=== PATIENT | male | born 1980 | race Caucasian/White ===

== ENCOUNTER 2017-07-06 23:13 | Emergency (ER) | payer BC ==
[2017-07-06 23:13] VITALS: BMI 28.1
[2017-07-06 23:19] VITALS: BP 134/83; PULSE 96; RESP 18; TEMP 98.7; O2SAT 98
--- NOTE | 2017-07-07 00:19 | C.PDOC ---
History Of Present Illness 37 year old male presents to the ER with a complaint of right ankle pain after he missed 2 steps on the stairs and twisted his right ankle [employer]. Patient reports he is unable to bear weight on his right ankle; denies weakness or numbness. Time Seen by Provider: 07/06/17 23:23 Chief Complaint (Nursing): Lower Extremity Problem/Injury History Per: Patient History/Exam Limitations: no limitations Onset/Duration Of Symptoms: Hrs Current Symptoms Are (Timing): Still Present Recent travel outside of the [place]: No - Ankle/Foot Description Of Injury: Twisted Currently Unable To: Bear Weight Past Medical History Reviewed: Historical Data, Nursing Documentation, Vital Signs Vital Signs: Last Vital Signs Temp 98.7 F 07/06/17 23:18 Pulse 96 H 07/06/17 23:18 Resp 18 07/06/17 23:18 BP 134/83 07/06/17 23:18 Pulse Ox 98 07/07/17 02:46 - Medical History PMH: No Chronic Diseases Surgical History: No Surg Hx Family History: States: Unknown Family Hx - Social History Hx Alcohol Use: Yes Hx Substance Use: Yes (weed) - Immunization History Hx Tetanus Toxoid Vaccination: No Hx Influenza Vaccination: No Hx Pneumococcal Vaccination: No Review Of Systems Musculoskeletal: Positive for: Foot Pain Neurological: Negative for: Weakness, Numbness Physical Exam - Physical Exam Appears: Non-toxic, No Acute Distress Skin: Normal Color, Warm, Dry Head: Atraumatic, Normacephalic Eye(s): bilateral: Normal Inspection, PERRL Extremity: Tenderness (Right lateral malleolus w/ swelling and erythema), No Calf Tenderness, Capillary Refill (<2 seconds), No Deformity, Swelling (right lat malleolus), Other (ROM of right foot causes pain) Extremity: Bilateral: Atraumatic Pulses: Left Dorsalis Pedis: Normal, Right Dorsalis Pedis: Normal Neurological/Psych: Oriented x3, Normal Speech, Normal Motor, Normal Sensation Gait: Unable To Assess ED Course And Treatment O2 Sat by Pulse Oximetry: 98 (Room air) Pulse Ox Interpretation: Normal - Other Rad Right ankle x-ray X-Ray: Interpreted by Me, Viewed By Me Interpretation: No acute fractures or dislocations Progress Note: Left ankle x-ray ordered. Motrin and percocet administered, patient reports improvement of pain. Patient placed in loli wrap and air cast and given crutches with instructions for nonweight bearing; will discharge with instructions to follow up with PMD for ortho referral as needed. Disposition - Disposition Disposition: HOME/ ROUTINE Disposition Time: 00:16 Condition: STABLE Additional Instructions: Please follow up with PMD or in clinic for ortho referral if needed Leg elevation Apply ICE Return to ER if worse Prescriptions: Ibuprofen [Motrin Tab] 800 mg PO QID #24 tab oxyCODONE/Acetaminophen [Percocet 5/325 mg Tab] 1 tab PO PRN PRN #7 tab PRN Reason: Pain Instructions: Ankle Sprain (ED) Forms: [employer] (Amharic), Work Excuse - Clinical Impression Clinical Impression: Ankle sprain - Scribe Statement The provider has reviewed the documentation as recorded by the Scribalessandro Wood All medical record entries made by the Autumnibalessandro were at my direction and personally dictated by me. I have reviewed the chart and agree that the record accurately reflects my personal performance of the history, physical exam, medical decision making, and the department course for this patient. I have also personally directed, reviewed, and agree with the discharge instructions and disposition.
[2017-07-07] MEDS ORDERED: Oxycodone/Acetaminophen 5/325 mg Tab PO STA (00:28)
[2017-07-07] MEDS ORDERED: Oxycodone/Acetaminophen 5/325 mg Tab ONE (00:32)
--- NOTE | 2017-07-07 08:35 | RAD ---
PROCEDURE: Right Ankle Radiographs. HISTORY: ankle pain, s/p fall COMPARISON: None FINDINGS: BONES: Normal. No fracture. JOINTS: Normal. No osteoarthritis. Ankle mortise maintained. Talar dome intact SOFT TISSUES: There is lateral soft tissue swelling. This may indicate ligamentous injury. OTHER FINDINGS: None. IMPRESSION: No evidence of fracture or dislocation. Lateral soft tissue swelling noted.
== END 2017-07-07 00:45 | disposition home or self-care (01) ==
LOC: C.ER 23:13
DX: S93.401A Sprain of unspecified ligament of right ankle, initial encounter (principal); X50.9XXA Other and unspecified overexertion or strenuous movements or postures, initial encounter